=== PATIENT | male | born 1990 | race Caucasian/White ===

== ENCOUNTER 2020-11-19 20:09 | Emergency (ER) | payer SELFPAY ==
[~2020-11-19] VITALS: Ht 172.7 cm; Wt 75.0 kg
[2020-11-19 20:26] VITALS: BP 110/72
== END 2020-11-19 23:08 | disposition left against medical advice (07) ==
LOC: ER 20:09
DX: Z53.21 Procedure and treatment not carried out due to patient leaving prior to being seen by health care provider (principal)